=== PATIENT | female | born 1975 | race Caucasian/White ===

== ENCOUNTER 2018-03-14 22:48 | Inpatient (IN) | payer BC, OTHER ==
--- NOTE | 2018-03-14 23:41 | RAD ---
PORTABLE CHEST ONE VIEW 03/14/18 at 11:27 p.m. HISTORY: Shortness of breath. FINDINGS: The heart size is normal. The lungs are expanded without focal areas of consolidation, pneumothorax, or pleural effusions. IMPRESSION: No acute process. POS: [facility]
[2018-03-15 00:05] LABS: ALT (SGPT) 20 U/L (8-55); AST (SGOT) 22 U/L (5-34); Albumin 3.8 g/dL (3.5-5.0); Alkaline Phosphatase 58 U/L (40-150); Anion Gap 12 mmol/L (10-20); BUN (Urea Nitrogen) 16 mg/dL (7.0-18.7); Bilirubin, Total 0.3 mg/dL (0.2-1.2); Calc. Creatinine Clearance 0 mL/min (70-130); Calcium 8.7 mg/dL (7.8-10.44); Carbon Dioxide 22 mmol/L (22-29); Chloride 109 mmol/L (98-107); Estimated GFR-MDRD 89; Globulin 2.7 g/dL (2.4-3.5); Glucose 118 mg/dL (70-105); Potassium 3.5 mmol/L (3.5-5.1); Protein, Total 6.5 g/dL (6.0-8.3); Sodium 139 mmol/L (136-145)
[2018-03-15 00:08] LABS: Hemoglobin 4.7 g/dL (12.0-16.0)
[2018-03-15 00:10] LABS: CKMB 0.4 ng/mL (0-6.6); Troponin I Less than 0.010 ng/mL (< 0.028)
[2018-03-15 00:27] LABS: #Basophils 0.1 thou/uL (0.0-0.2); #Eosinphils 0.1 thou/uL (0.0-0.7); #Lymphocytes 1.9 thou/uL (1.20-3.40); %Basophils 0.9 % (0.0-1.0); %Eosinophils 1.7 % (0.0-10.0); %Lymphocytes 23.3 % (21.0-51.0); %Monocytes 12.1 % (0.0-10.0); Anisocytosis SLIGHT = 6-15 cells (100X) (0-5/hpf); Hypochromia SLIGHT = 6-15 cells (100X) (0-5/hpf); MDiff Complete? YES; Mean Corpuscular HGB CONC 32.3 g/dL (32.0-36.0); Mean Corpuscular Hemoglobin 24.2 pg (27.0-31.0); Mean Corpuscular Volume 74.7 fl (81.0-99.0); Mean Platelet Volume 8.3 fL (7.4-10.4); Microcytosis SLIGHT = 6-15 cells (100X) (0-5/hpf); Platelet Count 233 thou/uL (130-400); RBC Distribution Width 15.4 % (11.5-14.5); Red Blood Cell (RBC) Count 1.93 mill/uL (4.20-5.40); Reflex for Review?? YES; White Blood Cell (WBC) Count 8.1 thou/uL (4.8-10.8)
[2018-03-15 00:32] LABS: Free T4 (Free Thyroxine) 1.02 ng/dL (0.70-1.48); Thyroid Stimulating Hormone 1.5712 uIU/mL (0.35-4.94)
[2018-03-15 01:45] LABS: Iron 12 ug/dL (50-170); Iron Binding Capacity, Total 410 mcg/dL (265-497)
[2018-03-15 02:38] LABS: Bilirubin Negative (Negative); Blood, Urine Negative (Negative); Clarity CLEAR (Clear); Glucose, Urine (Dipstick) Negative (Negative); Leukocyte Negative (Negative); Nitrite Negative (Negative); Protein, Urine (Dipstick) Negative (Neg-Trace); Specific Gravity, Urine 1.011 (1.002-1.036); Urobilinogen 0.2 mg/dL (0.2-1.0)
[2018-03-15 02:45] LABS: Pregnancy Test - Urine (BHCG) Negative (Negative); Pregu Control Background? CLEAR/WHITE (CLR/WHITE); Pregu Control Bar Appear? YES (CONTROL BAR); Specific Gravity 1.011 (1.002-1.036)
[2018-03-15 02:49] LABS: Amphetamine Not Detected (NotDetected); Barbiturates Screen Not Detected (NotDetected); Benzodiazepine Screen Not Detected (NotDetected); Cocaine Metabolite Screen Not Detected (NotDetected); Medtox Control Line Valid? VALID (VALID); Medtox Reader # READER 1; Methadone Not Detected (NotDetected); Methamphetamine Not Detected (NotDetected); Opiate Screen Not Detected (NotDetected); Oxycodone Screen Not Detected (NotDetected); Phencyclidine (PCP) Not Detected (NotDetected); THC/Cannabinoid Screen Not Detected (NotDetected); Tricyclic Screen Not Detected (NotDetected)
[2018-03-15] MEDS ORDERED: Acetaminophen 325 MG TAB PO PRN (02:54)
[2018-03-15] MEDS ORDERED: Ondansetron ODT 4 MG TAB SL PRN (03:15)
[2018-03-15] MEDS ORDERED: Sodium Chloride 0.45% 1,000 ML IV SCH (03:15)
[2018-03-15] MEDS ORDERED: Ondansetron PF 4 MG/2 ML Vial IVP PRN (03:15)
[2018-03-15 03:35] VITALS: BMI 25.4
[2018-03-15] MEDS: Sodium Chloride 0.9% 1,000 ML IV SCH ×2 (04:44→22:46)
--- NOTE | 2018-03-15 05:26 | HP ---
CHIEF COMPLAINT: Shortness of breath and palpitation. PRIMARY CARE PHYSICIAN: No PCP. HISTORY OF PRESENT ILLNESS: The patient is a very pleasant, 43-year-old female, who presents to the hospital today with complaints of shortness of breath and palpitations going on for the past 2-3 days . The patient states that she has a history of fissures and has occasional bleeding after having a b owel movement with also some minor clots. The patient states that she recently had her menstrual cyc le, and normally, during her menstrual cycle, her hemorrhoids act up, and she has continued to have s ome minor bleeding with some minor clots for the past 2 weeks. The patient denies any fevers or chil ls. Patient states that she was trying to hold her baby up today, felt very nauseous, felt very ill. Patient stated that she at one point feels that she passed out because when she woke up she found h erself lying in her own urine. At that time, patient got very concerned and brought herself into the ER. The patient stated also that a couple of days ago she took some iron, which seemed to help her. PAST MEDICAL HISTORY: She has a history of hemorrhoids and fissure. SOCIAL HISTORY: Denies any smoking; however, drinks 1-2 beers a day. FAMILY HISTORY: Father had lung cancer. ALLERGIES: She is allergic to CODEINE and SHELLFISH. MEDICATIONS: She takes no medications. SURGICAL HISTORY: She had no surgical history, and she is 2, para 2. REVIEW OF SYSTEMS: The following complete review of systems was negative, unless otherwise mentioned in the HPI or below: Constitutional: Weight loss or gain, ability to conduct usual activities. Sk in: Rash, itching. Eyes: Double vision, pain. ENT/Mouth: Nose bleeding, neck stiffness, pain, te nderness. Cardiovascular: Palpitations, dyspnea on exertion, orthopnea. Respiratory: Shortness of breath, wheezing, cough, hemoptysis, fever or night sweats. Gastrointestinal: Poor appetite, abdom inal pain, heartburn, nausea, vomiting, constipation, or diarrhea. Genitourinary: Urgency, frequenc y, dysuria, nocturia. Musculoskeletal: Pain, swelling. Neurologic/Psychiatric: Anxiety, depressio n. Allergy/Immunologic: Skin rash, bleeding tendency. All negative except for the ones mentioned a kusum in the HPI. PHYSICAL EXAMINATION: VITAL SIGNS: Temperature 98.8. She is a little tachycardic at 110. Blood pressure is 110/60, respi rations are 16, she is 98% on room air. GENERAL: The patient is awake, alert, oriented x3, appears very pale, does not appear in any distres s. CARDIOVASCULAR: S1, S2 present. No murmurs, rubs, or gallops. LUNGS: Clear to auscultation. No rhonchi or wheezes noted. ABDOMEN: Soft, nontender. Bowel sounds are present x2. EXTREMITIES: Lower extremity, no edema. Pedal pulse present x2. SKIN: She does have several tattoos in her back and her leg and her neck area. LABORATORY RESULTS: As following. She has hemoglobin of 4.7 with a hematocrit of 14.4, WBCs of 8.1, platelets of 233. Chemistry, sodium of 139, potassium of 3.5, BUN of 16, creatinine of 0.71. Tropo christ x1 was negative. LFTs were negative. She also had a chest x-ray done, which did not indicate an y acute process. ASSESSMENT AND PLAN: The patient is a very pleasant, 43-year-old female, who presents to the [facility] with complaints of shortness of breath and palpitation. 1. Microcytic anemia, acute, which most likely is causing her shortness of breath and palpitations. The patient's hemoglobin is found to be 4.7. We will transfuse the patient 2 units of packed red bl ood cells. We will check hemoglobin and hematocrit post 2 units and transfuse as needed. Her iron s tudies were found to have low iron. The patient may require IV iron in addition to p.o. iron. The p atient states that she has been having her hemorrhoids that are bleeding; however, currently, she say s that her hemorrhoid bleeding has stopped. 2. Deep venous thrombosis prophylaxis. We will put the patient on sequential compression devices gi scooter her recent history of bleeding. We will avoid any anticoagulation.
[2018-03-15 08:17] LABS: Hemoglobin 6.1 g/dL (12.0-16.0)
--- NOTE | 2018-03-15 09:58 | ULT ---
TRANSABDOMINAL AND TRANSVAGINAL PELVIC ULTRASOUND WITH DOPPLER: DATE: 03/15/18. PROVIDED CLINICAL HISTORY: Uterine bleeding. FINDINGS: The uterus measures about 9.2 x 6.4 x 4.2 cm and demonstrates an unremarkable sonographic appearance to the uterine myometrium. Endometrial thickness is about 1 cm. The right ovary measures about 2.9 x 2.8 x 1.8 cm and appears sonographically unremarkable. The left ovary measures about 3.3 x 2.8 x 2.8 cm and appears sonographically unremarkable. Color Doppler and spectral analysis of the ovarian waveforms demonstrates normal flow bilaterally. There is a small amount of nonspecific free pelvic fluid. IMPRESSION: No evidence for an acute process. Nonspecific prominence of the uterine endometrium. A small amount of possibly physiologic free pelvic fluid. POS: [facility]
--- NOTE | 2018-03-15 11:50 | PDOC.PN ---
- Subjective Encounter Start Date: 03/15/18 Encounter Start Time: 08:30 Subjective: no abd pain or nausea -: got 1 unit or prbc so far -: no sob, no vaginal bleeding, has chronic h/o hemorrhoids/fissure - Objective Resuscitation Status: Resuscitation Status FULL:Full Resuscitation MAR Reviewed: Yes Vital Signs & Weight: Vital Signs (12 hours) Temp Pulse Pulse Resp BP BP Pulse Ox 03/15/18 11:32 98.0 F 86 18 123/60 100 03/15/18 09:47 98.2 F 92 16 130/64 100 03/15/18 09:37 98.1 F 91 16 118/66 100 03/15/18 07:44 98.3 F 86 15 99 03/15/18 07:04 98.3 F 84 15 112/66 98 03/15/18 07:00 80 18 112/66 100 03/15/18 04:06 98.4 F 97 16 129/55 L 99 03/15/18 03:45 98.4 F 96 16 98 03/15/18 02:55 99.8 F H 96 16 122/56 L 100 Weight Weight 167 lb 11.2 oz I&O: 03/14/18 03/15/18 03/16/18 06:59 06:59 06:59 Intake Total 500 350 Output Total 150 Balance 350 350 Result Diagrams: 03/15/18 06:37 03/14/18 23:30 Phys Exam - Physical Examination HEENT: PERRLA, moist MMs pallor+ Neck: no JVD, supple Respiratory: no wheezing, no rales Cardiovascular: RRR, no significant murmur Gastrointestinal: soft, non-tender, no distention, positive bowel sounds Musculoskeletal: no edema, pulses present Neurological: non-focal, moves all 4 limbs Psychiatric: normal affect, A&O x 3 Dx/Plan (1) severe iron def anemia Status: Acute Comment: with Hb of 4.7g (2) Acute blood loss anemia Code(s): D62 - ACUTE POSTHEMORRHAGIC ANEMIA Status: Acute (3) GI bleed Code(s): K92.2 - GASTROINTESTINAL HEMORRHAGE, UNSPECIFIED Status: Acute Qualifiers: GI bleed type/associated pathology: anorectal hemorrhage Qualified Code(s) : K62.5 - Hemorrhage of anus and rectum - Plan is getting her second unit of prbc -: may transfuse 3rd unit if Hb <7g -: d/w , keep pt npo -: had colonoscopy 1 yr back (), f/u with for fissure/hemor -: lasix prn if vol overloaded * . Pelvic usg showed no path for anemia. Has normal cycles with no elise/ metrorrhagia. Last child is 2 yrs old. Review of Systems - Medications/Allergies Allergies/Adverse Reactions: Allergies Allergy/AdvReac Type Severity Reaction Status Date / Time peanut Allergy Severe Verified 03/15/18 04:14 Fish Containing Products Allergy Intermediate Verified 03/15/18 04:14 shellfish derived Allergy Intermediate Verified 03/15/18 04:14 codeine AdvReac Mild Nausea Verified 03/15/18 04:14 Medications: Current Medications Acetaminophen (Tylenol) 650 mg PO Q4H PRN PRN Reason: Headache/Fever or Pain Sodium Chloride (Normal Saline 0.9%) 1,000 mls @ 50 mls/hr IV .Q20H [facility]IVEL Last Admin: 03/15/18 04:44 Dose: 1,000 mls Ondansetron HCl (Zofran) 4 mg IVP Q6H PRN PRN Reason: Nausea/Vomiting Stop: 03/15/18 15:00 Ondansetron HCl (Zofran Odt) 4 mg SL Q6H PRN PRN Reason: Nausea/Vomiting Stop: 03/15/18 15:00 Sodium Chloride (Flush - Normal Saline) 10 ml IVF PRN PRN PRN Reason: Saline Flush Stop: 03/15/18 15:00
[2018-03-15 12:08] LABS: Hemoglobin 7.2 g/dL (12.0-16.0); Mean Corpuscular HGB CONC 33.7 g/dL (32.0-36.0); Mean Corpuscular Hemoglobin 27.5 pg (27.0-31.0); Mean Corpuscular Volume 81.5 fl (81.0-99.0); Mean Platelet Volume 7.8 fL (7.4-10.4); Platelet Count 190 thou/uL (130-400); RBC Distribution Width 17.9 % (11.5-14.5); Red Blood Cell (RBC) Count 2.63 mill/uL (4.20-5.40); White Blood Cell (WBC) Count 8.3 thou/uL (4.8-10.8)
[2018-03-15 12:43] LABS: Anisocytosis SLIGHT = 6-15 cells (100X) (0-5/hpf); Band 4 % (5-11); Eosinophils 3 % (0-10); Hypochromia MODERATE=16-30 cells (100X) (0-5/hpf); Lymphocytes 24 % (21-51); MDiff Complete? YES; Metamyelocyte 6 % (0-0); Monocytes 4 % (0-10); Neutrophil 58 % (42-75); PLT Morphology Comment Appears Adequate; Poikilocytosis SLIGHT = 6-15 cells (100X) (0-5/hpf); Reactive Lymphocytes 1 % (0-10)
[2018-03-15 14:01] LABS: Hemoglobin 7.7 g/dL (12.0-16.0)
[2018-03-15 20:39] LABS: Hemoglobin 7.1 g/dL (12.0-16.0)
--- NOTE | 2018-03-15 21:38 | CON ---
DATE OF CONSULTATION: 03/15/2018 REASON FOR CONSULTATION: Symptomatic anemia. CONSULTING PHYSICIAN: Thi Flaherty MD HISTORY OF PRESENT ILLNESS: Patient is a 43-year-old female with past medical history of hemorrhoids with chronic hemorrhoidal bleeding, anxiety, asthma and anal fissure, presenting with complaints of shortness of breath and palpitations. She says that for the past 2 to 3 days prior to admission, she had been having increased shortness of breath both on exertion and at rest along with sensation of p alpitations. She did not notice that this was a significant issue until she was walking with her bab y in her arms and could only walk approximately 10 to 12 steps while carrying them and had realized t hat she had to stop to catch her breath. This subsequently brought her in for admission and with rou ladarius labs noted to have a significantly decreased H and H and admitted for evaluation. Upon further interview, she states that she has been having chronic hemorrhoidal bleeding for at least the last 1 to 2 years, characterized as bright red blood per rectum on both the toilet paper and in the toilet. She would bleed for approximately 2 to 3 weeks at a time with sometimes minimal, but other times inc reased amounts of blood loss. She also states that she would have approximately 3 to 5 semisolid bow el movements per day with a history of constipation, but none within the last year. She also endorse s a history of childhood constipation where she would spend increased amounts of time on the toilet, which is continued into adulthood with her current stooling habits, she does have some intermittent s training from time to time. In addition to the above symptoms, she also endorsed minimal midepigastr ic abdominal discomfort characterized as the sensation of a knot in her stomach that was relieved wit h burping. She does have symptoms of occasional heartburn that are being adequately treated with ove [id number]-[id number] acid reflux medications. Of note, when asked about her menstrual cycle, she does note that she has a normal duration length, b ut will often have times where she has a heavier menstrual flow. Colonoscopy also was performed on 0 03/25/2017 with normal colonic findings at that time except for external hemorrhoids. REVIEW OF SYSTEMS: A 10-category review of systems was obtained with all responses negative except f or the pertinent positives as listed in the HPI. PAST MEDICAL HISTORY: As per HPI. PAST SURGICAL HISTORY: No significant past surgical history. FAMILY HISTORY: Lung cancer (father). No GI malignancies. SOCIAL HISTORY: Denies tobacco or illicit drug use; however, drinks approximately 1-2 drinks every 1 -2 days. OUTPATIENT MEDICATIONS: None. ALLERGIES: CODEINE and SHELLFISH. PHYSICAL EXAMINATION: VITAL SIGNS: Temperature 98.2, pulse 81, blood pressure 123/74, respiratory rate 20, satting 100% on room air. GENERAL: The patient is lying in bed in no acute distress. Alert and oriented x4. NECK: Supple. No JVD noted. CARDIOVASCULAR: Regular rate and rhythm with no discernible murmurs, gallops, or rubs. RESPIRATORY: Clear to auscultation bilaterally with no wheezes or rales. ABDOMEN: Soft, nontender, nondistended. Normoactive bowel sounds. EXTREMITIES: No cyanosis, clubbing, or edema. LABORATORY DATA: CBC with a white blood cell count of 8.1, hemoglobin 4.7, hematocrit 14.4, platelet s 233,000. Chemistry with sodium of 139, potassium 3.5, chloride 109, CO2 of 22, BUN 16, creatinine 0.71, glucose 118, AST 22, ALT 20, alkaline phosphatase 58, total bilirubin 0.3. Iron 12, TIBC 396, ferritin 11, iron saturation 3%. IMAGING DATA: Pelvis ultrasound obtained on 03/15/2018, showed no evidence of acute process, nonspec ific prominence of the uterine endometrium, but no other abnormalities. ASSESSMENT AND PLAN: The patient is a 43-year-old female with past medical history of anxiety, asthm a, anal fissure, and chronic hemorrhoidal bleeding presenting with iron deficiency anemia. Iron deficiency anemia: The patient is presenting with acute onset of increased dyspnea on exertion as well as shortness of breath at rest, mild nausea, and cardiac palpitations with labs showing a sig nificant anemia. Further characterization of her anemia yields a low iron, high TIBC, and low ferrit in consistent with an iron deficiency anemia. She underwent colonoscopy in 03/2017, however, with no overt findings seen during that examination except for external hemorrhoids. She has never had an u pper endoscopy. At this time, the most likely explanation for her iron deficiency anemia would be ch ronic hemorrhoidal bleeding over the last year where she would have episodes of bleeding for 2 to 3 w eeks straight with intermittent relief in between these episodes in addition to monthly menstrual ble eding that would sometimes be characterized as heavier flow. When coupling the two together, it coul d definitely create an iron deficiency anemia with a significant anemia that is seen on admission thi s time. However, at this point, an upper gastrointestinal source of her anemia has not been ruled ou t, so further endoscopic evaluation is indicated. RECOMMENDATIONS: 1. We would continue to trend H and H and transfuse as necessary to maintain H and H of 06/06. 2. We will continue to monitor for signs of active GI bleeding. 3. Please make patient n.p.o. at midnight in preparation for an EGD tomorrow morning for completing the GI workup for iron deficiency anemia. 4. If no evidence of chronic GI blood loss is seen on upper endoscopy, would then recommend colorect al surgery consultation for evaluation of chronic bleeding hemorrhoids contributing to her symptomati c anemia. We will continue to follow. Please call with any questions.
[2018-03-16 02:53] LABS: ALT (SGPT) 21 U/L (8-55); AST (SGOT) 16 U/L (5-34); Albumin 3.4 g/dL (3.5-5.0); Alkaline Phosphatase 50 U/L (40-150); Anion Gap 11 mmol/L (10-20); BUN (Urea Nitrogen) 11 mg/dL (7.0-18.7); Bilirubin, Total 0.6 mg/dL (0.2-1.2); Calc. Creatinine Clearance 140 mL/min (70-130); Calcium 7.9 mg/dL (7.8-10.44); Carbon Dioxide 21 mmol/L (22-29); Chloride 111 mmol/L (98-107); Estimated GFR-MDRD Greater than 90; Globulin 2.2 g/dL (2.4-3.5); Glucose 88 mg/dL (70-105); Potassium 3.5 mmol/L (3.5-5.1); Protein, Total 5.6 g/dL (6.0-8.3); Sodium 139 mmol/L (136-145)
[2018-03-16] MEDS ORDERED: Ondansetron HCl/PF 4 MG/2 ML Vial IVP PRN (11:47)
[2018-03-16] MEDS ORDERED: PACU-Morphine 4MG/ML VIAL SLOW IVP PRN (11:47)
[2018-03-16] MEDS ORDERED: Morphine Sulfate 2 MG/ML SYRINGE SLOW IVP PRN (11:47)
[2018-03-16] MEDS ORDERED: Promethazine HCl 25 MG/ML VIAL SLOW IVP PRN (11:47)
--- NOTE | 2018-03-16 12:36 | OP ---
DATE OF PROCEDURE: 03/16/2018 PROCEDURE: Esophagogastroduodenoscopy with biopsy. INDICATION FOR PROCEDURE: Iron deficiency anemia. DESCRIPTION OF PROCEDURE: After the risks and benefits of the procedure were explained to the patien t including risk of bleeding, infection, perforation, reactions to anesthesia and/or pain, informed c onsent was obtained. The patient was then taken to the endoscopy suite where deep sedation was admin istered via propofol and anesthesia support. Once adequate sedation was achieved, the standard gastr oscope was introduced into the mouth with intubation of the esophagus, stomach and proximal small int estine with the findings listed below. The patient tolerated the procedure well with no immediate pe rioperative complications. FINDINGS: ESOPHAGUS: Normal appearing mucosa was seen in the proximal, mid and distal esophagus. There was no evidence of erosions, ulcerations, mass lesions or active/recent bleeding. STOMACH: Normal appearing mucosa was seen in the cardia, fundus, body, antrum and incisura. There w as no evidence of erosions, ulcerations, mass lesions or active/recent bleeding. DUODENUM: Normal appearing mucosa was seen in both the duodenal bulb and second portion of the duode num. There was no evidence of erosions, ulcerations, mass lesions or active/recent bleeding. Random biopsies were taken from the duodenal bulb and second portion of the duodenum for evaluation of poss ible celiac sprue. IMPRESSION: Normal upper endoscopy. RECOMMENDATIONS: 1. We will follow up on the biopsy results and place the patient on a gluten restricted diet if posi tive for celiac disease. 2. We will continue to trend hemoglobin and hematocrit and transfuse as necessary to maintain an hem oglobin and hematocrit of 7/21. 3. Continue to monitor for signs of active gastrointestinal bleeding. 4. Would consider consultation of colorectal surgeon for evaluation of chronic hemorrhoidal bleeding , most likely leading to her current iron deficiency anemia state and low hemoglobin and hematocrit o n this admission. We will sign off at this time. Please call with any additional questions.
--- NOTE | 2018-03-16 13:23 | PDOC.PN ---
- Subjective Encounter Start Date: 03/16/18 Encounter Start Time: 12:45 Subjective: had egd this am - Objective Resuscitation Status: Resuscitation Status FULL:Full Resuscitation MAR Reviewed: Yes Vital Signs & Weight: Vital Signs (12 hours) Temp Pulse Resp BP BP Pulse Ox 03/16/18 08:00 98.7 F 90 16 97 03/16/18 07:00 98.7 F 90 16 97/49 L 97 03/16/18 04:38 81 16 109/59 L 95 Weight Weight 163 lb 6.4 oz I&O: 03/15/18 03/16/18 03/17/18 06:59 06:59 06:59 Intake Total 500 650 Output Total 150 Balance 350 650 Result Diagrams: 03/16/18 01:37 03/16/18 01:37 Phys Exam - Physical Examination HEENT: PERRLA, moist MMs Neck: no JVD, supple Respiratory: no wheezing, no rales Cardiovascular: RRR, no significant murmur Gastrointestinal: soft, non-tender, no distention, positive bowel sounds Musculoskeletal: no edema, pulses present Neurological: non-focal, moves all 4 limbs Psychiatric: normal affect, A&O x 3 Dx/Plan (1) severe iron def anemia Status: Acute Comment: with Hb of 4.7g (2) Acute blood loss anemia Code(s): D62 - ACUTE POSTHEMORRHAGIC ANEMIA Status: Acute (3) GI bleed Code(s): K92.2 - GASTROINTESTINAL HEMORRHAGE, UNSPECIFIED Status: Acute Qualifiers: GI bleed type/associated pathology: anorectal hemorrhage Qualified Code(s) : K62.5 - Hemorrhage of anus and rectum - Plan will consult -: EGD was normal, pelvic sono was normal -: likely etiology for bleed is her chronic hemorrhoids/fissure -: oral solid diet, dc iv fluids -: Likely home on iron if no surgical intervention is planned * . Review of Systems - Medications/Allergies Allergies/Adverse Reactions: Allergies Allergy/AdvReac Type Severity Reaction Status Date / Time peanut Allergy Severe Verified 03/15/18 04:14 Fish Containing Products Allergy Intermediate Verified 03/15/18 04:14 shellfish derived Allergy Intermediate Verified 03/15/18 04:14 codeine AdvReac Mild Nausea Verified 03/15/18 04:14 Medications: Current Medications Acetaminophen (Tylenol) 650 mg PO Q4H PRN PRN Reason: Headache/Fever or Pain Fentanyl (Pacu-Sublimaze) 50 mcg SLOW IVP Q10MIN PRN PRN Reason: Moderate to Severe Pain (6-10) Stop: 03/16/18 14:47 Sodium Chloride (Normal Saline 0.9%) 1,000 mls @ 50 mls/hr IV .Q20H [facility] Last Admin: 03/15/18 22:46 Dose: 1,000 mls Morphine Sulfate (Pacu-Morphine Sulfate) 2 mg SLOW IVP Q10MIN PRN PRN Reason: Moderate to Severe Pain (6-10) Stop: 03/16/18 14:47 Morphine Sulfate (Pacu-Morphine Sulfate) 4 mg SLOW IVP ONE PRN PRN Reason: Moderate to Severe Pain (6-10) Stop: 03/16/18 14:47 Ondansetron HCl (Pacu-Zofran) 4 mg IVP ONE PRN PRN Reason: Nausea/Vomiting Stop: 03/16/18 14:47 Promethazine HCl (Pacu-Phenergan) 6.25 mg SLOW IVP ONE PRN PRN Reason: Nausea/Vomiting Stop: 03/16/18 14:47
[2018-03-16] MEDS ORDERED: PROPOFOL 200 MG/20 ML VIAL ONE (15:09)
[2018-03-16] MEDS: Sodium Chloride 0.9% 1,000 ML IV SCH (15:24)
[2018-03-16] MEDS ORDERED: cefOXitin Sodium 1 GM, Syringe 0.5 ML in Sterile Water 10 ML SLOW IVP SCH (19:30)
[2018-03-16] MEDS ORDERED: Fleet Enema 133 ML BOT FS SCH (19:30)
--- NOTE | 2018-03-17 00:42 | CON ---
DATE OF CONSULTATION: 03/16/2018 REASON FOR CONSULTATION: Severe symptomatic anemia (hemoglobin of 4.7), bleeding internal hemorrhoid s. HISTORY OF PRESENT ILLNESS: The patient is a 43-year-old white female known to myself from prior con sultation in my office. I have visited with her on few occasions in my office regarding bleeding int ernal hemorrhoids and an anal fissure. The last time that I saw her was in 09/2017 and at that time she seemed to have some minor bleeding, but more significant pain associated with an anterior anal fi ssure. She was still her child at that time, and I had recommended an alternative cour se of action rather than topical nitroglycerin. She actually never followed up for any Botox treatme nt, but noted that the pain seemed to get better and she has seen no one in the interim. She notes t hat she continues to have blood in the toilet with each bowel movement. A couple of weeks ago she be joselin to note increased tiredness and lethargy, decreased stamina. She felt very weak on Friday (2 d ays ago) presented to the emergency room. Laboratory studies at that time revealed hemoglobin of 4.7 . I believe she was transfused with 2 units of blood and her hemoglobin oscar to a high of 7.7 and is currently 7.0. She had a GI evaluation and Dr. Cuadra performed an upper endoscopy yesterday, which was unremarkable. The patient had had a colonoscopy in 03/2017 revealing no other intracolonic abnor malities other than hemorrhoids. At this time, she notes that she has minimal anal discomfort, but still has bleeding. She notes occa sional constipation, but otherwise no significant problems with bowel habits. Her most recent bowel movement was earlier today and was unremarkable. PAST MEDICAL HISTORY: Essentially unremarkable. She has significant external hemorrhoids. PAST SURGICAL HISTORY: None. MEDICATIONS: None. ALLERGIES: CODEINE causes vomiting, but she has no definite medication allergies. PERSONAL AND SOCIAL HISTORY: She is essentially common law . She has 2 children, one of whom is about 2 years old. She does not smoke. She drinks alcohol occasionally. She works at a [employer]. REVIEW OF SYSTEMS: Otherwise, unremarkable. FAMILY HISTORY: Noncontributory. PHYSICAL EXAMINATION: VITAL SIGNS: Temperature is 98.0, pulse 84, blood pressure 124/69. GENERAL: Well-developed, well-nourished, pleasant white female resting in bed in no acute distress. She is alert and oriented x3. HEAD, EYES, EARS, NOSE, AND THROAT: Unremarkable. NECK: Supple, without mass or tenderness. LUNGS: Clear to auscultation throughout. CARDIAC: Regular rate and rhythm without murmur. ABDOMEN: Soft, nontender, nondistended. RECTAL: She has significant circumferential external hemorrhoids that are not inflamed or tender. S he also has semi circumferential internal hemorrhoids. This prolapsed somewhat with Valsalva maneuve r. Some of these appear to be significantly inflamed as though they may be the source of bleeding. Digital examination reveals some scarring anteriorly consistent with a history of a fissure. She has got minor tenderness associated with this. There is no other definite rectal mass. LABORATORY DATA: Her coagulation panel has surprisingly not been checked during this hospitalization . I will order a set of these labs for her in the morning. Her chemistry panel is essentially unrem arkable. ASSESSMENT: The patient with what appears to be significant anemia related to bleeding hemorrhoids. She understands it is possible the bleeding may be coming from elsewhere within the GI tract, such a s the small intestine. Does not seem likely; however, at this point that she describes the bleeding as bright red. I recommend stapled hemorrhoidectomy. She tells me that external hemorrhoids do not bother her enough that she would like to have them operated on. She understands the procedure was st apled hemorrhoidectomy as well as potential risks. She understands and agrees to proceed with surger y and this has been scheduled for tomorrow. Assuming she is stable, she can probably go home after t he surgery tomorrow.
[2018-03-17 05:19] LABS: INR-International Normal Ratio 1.2; PTT 35.1 SEC (22.9-36.1); Prothrombin Time 15.3 SEC (12.0-14.7)
[2018-03-17 05:35] LABS: #Basophils 0.1 thou/uL (0.0-0.2); #Eosinphils 0.2 thou/uL (0.0-0.7); #Lymphocytes 2.1 thou/uL (1.20-3.40); #Monocytes 0.8 thou/uL (0.11-0.59); #Neutrophils 3.3 thou/uL (1.40-6.50); %Basophils 0.8 % (0.0-1.0); %Lymphocytes 32.2 % (21.0-51.0); %Monocytes 11.8 % (0.0-10.0); %Neutrophils 52.2 % (42.0-75.0); Hemoglobin 7.1 g/dL (12.0-16.0); Mean Corpuscular HGB CONC 34.6 g/dL (32.0-36.0); Mean Corpuscular Hemoglobin 28.2 pg (27.0-31.0); Mean Corpuscular Volume 81.6 fl (81.0-99.0); Mean Platelet Volume 8.7 fL (7.4-10.4); Platelet Count 185 thou/uL (130-400); RBC Distribution Width 17.9 % (11.5-14.5); White Blood Cell (WBC) Count 6.4 thou/uL (4.8-10.8)
[2018-03-17] MEDS: Ferrous Sulfate 325 MG TAB PO SCH (08:29)
[2018-03-17] MEDS ORDERED: Lidocaine 2% Jelly 5 ML TUBE ONE (15:31)
[2018-03-17] MEDS ORDERED: Bupivacaine/Epinephrine 0.25% 30 ML VIAL ONE (15:31)
[2018-03-17] MEDS ORDERED: Lidocaine 1% PF 5 ML VIAL ONE (16:11)
[2018-03-17] MEDS ORDERED: Ondansetron PF 4 MG/2 ML Vial ONE ×2 (16:11→17:05)
[2018-03-17] MEDS ORDERED: Dexamethasone 20 MG/5 ML VIAL ONE (16:11)
[2018-03-17] MEDS ORDERED: PROPOFOL 200 MG/20 ML VIAL ONE (16:11)
[2018-03-17] MEDS ORDERED: Glycopyrrolate 0.2 MG/ML 5 ML SYRINGE ONE (16:11)
[2018-03-17] MEDS ORDERED: Fentanyl 100 MCG/2 ML VIAL ONE ×2 (16:12→17:42)
[2018-03-17] MEDS ORDERED: Ondansetron HCl/PF 4 MG/2 ML Vial IVP PRN (17:09)
[2018-03-17] MEDS ORDERED: Promethazine HCl 25 MG/ML VIAL SLOW IVP PRN (17:09)
[2018-03-17] MEDS ORDERED: Promethazine HCl 25 MG/ML VIAL IM PRN (17:09)
[2018-03-17] MEDS ORDERED: HYDROcodone/Acetaminophen 7.5/325 mg Tablet PO PRN (18:23)
[2018-03-17] MEDS: Sodium Chloride 0.9% 1,000 ML IV SCH (18:56)
[2018-03-17] MEDS: HYDROcodone/Acetaminophen 7.5/325 mg Tablet PO PRN (19:00)
--- NOTE | 2018-03-17 19:07 | PDOC.PN ---
- Subjective Encounter Start Date: 03/17/18 Encounter Start Time: 19:05 Ms. Bautista has returned from surgery. She is feeling a bit nauseated, and has some pain in the rectal area of about 5/10. - Objective Resuscitation Status: Resuscitation Status FULL:Full Resuscitation MAR Reviewed: Yes Vital Signs & Weight: Vital Signs (12 hours) Temp Pulse Resp BP BP Pulse Ox 03/17/18 18:15 98.4 F 72 18 114/60 100 03/17/18 11:24 98.4 F 81 16 113/69 100 03/17/18 08:11 98.7 F 86 16 105/65 100 03/17/18 08:00 98.7 F 86 16 100 Weight Weight 163 lb 6.4 oz I&O: 03/16/18 03/17/18 03/18/18 06:59 06:59 06:59 Intake Total 650 1230 850 Output Total 0 Balance 650 1230 850 Result Diagrams: 03/17/18 04:38 03/16/18 01:37 Phys Exam - Physical Examination HEENT: PERRLA, sclera anicteric Respiratory: no wheezing, no rales, no rhonchi, clear to auscultation bilateral Cardiovascular: RRR, no significant murmur, no rub Gastrointestinal: soft, non-tender, no distention, positive bowel sounds Musculoskeletal: no edema Dx/Plan (1) Bleeding internal hemorrhoids Code(s): K64.8 - OTHER HEMORRHOIDS Status: Acute (2) Acute blood loss anemia Code(s): D62 - ACUTE POSTHEMORRHAGIC ANEMIA Status: Acute (3) severe iron def anemia Status: Acute Comment: with Hb of 4.7g - Plan * Severe Iron deficiency anemia- this has improved following transfusion, H&H is stable * She will need iron supplementation * Internal Hemorrhoids - she is s/p staple surgery- continue symptom management , and hopefully home tomorrow.
[2018-03-18] MEDS: HYDROcodone/Acetaminophen 7.5/325 mg Tablet PO PRN ×2 (00:14→07:01)
[2018-03-18 06:00] LABS: #Lymphocytes 1.2 thou/uL (1.20-3.40); #Monocytes 0.6 thou/uL (0.11-0.59); #Neutrophils 5.9 thou/uL (1.40-6.50); %Basophils 0.3 % (0.0-1.0); %Eosinophils 0.6 % (0.0-10.0); %Lymphocytes 15.7 % (21.0-51.0); %Monocytes 7.8 % (0.0-10.0); %Neutrophils 75.7 % (42.0-75.0); Hemoglobin 6.6 g/dL (12.0-16.0); Mean Corpuscular HGB CONC 32.5 g/dL (32.0-36.0); Mean Corpuscular Hemoglobin 26.5 pg (27.0-31.0); Mean Corpuscular Volume 81.4 fl (81.0-99.0); Mean Platelet Volume 8.6 fL (7.4-10.4); Platelet Count 187 thou/uL (130-400); RBC Distribution Width 17.2 % (11.5-14.5); White Blood Cell (WBC) Count 7.8 thou/uL (4.8-10.8)
[2018-03-18] MEDS: Ferrous Sulfate 325 MG TAB PO SCH (09:59)
[2018-03-18] MEDS: Sodium Chloride 0.9% 1,000 ML IV SCH (13:12)
--- NOTE | 2018-03-18 14:35 | PDOC.PN ---
- Subjective Encounter Start Date: 03/18/18 Encounter Start Time: 14:33 Ms. Bautista was seen today in follow-up of bleeding internal hemorrhoids. She is feeling better today, the pain has improved some, as well as the nausea. - Objective Resuscitation Status: Resuscitation Status FULL:Full Resuscitation MAR Reviewed: Yes Vital Signs & Weight: Vital Signs (12 hours) Temp Pulse Pulse Resp BP BP BP 03/18/18 13:50 98.2 F 72 18 128/77 03/18/18 11:46 98.6 F 72 16 130/82 03/18/18 08:00 99 F 82 16 03/18/18 07:47 99 F 82 16 110/68 03/18/18 04:00 99.7 F H 87 16 113/67 Pulse Ox 03/18/18 13:50 03/18/18 11:46 98 03/18/18 08:00 03/18/18 07:47 97 03/18/18 04:00 100 Weight Weight 163 lb 6.4 oz I&O: 03/17/18 03/18/18 03/19/18 06:59 06:59 06:59 Intake Total 1230 1790 240 Output Total 0 Balance 1230 1790 240 Result Diagrams: 03/18/18 05:19 03/16/18 01:37 Phys Exam - Physical Examination HEENT: PERRLA Respiratory: no wheezing, no rales, no rhonchi, clear to auscultation bilateral Cardiovascular: RRR, no significant murmur, no rub Gastrointestinal: soft, non-tender, no distention, positive bowel sounds Musculoskeletal: no edema Dx/Plan (1) Bleeding internal hemorrhoids Code(s): K64.8 - OTHER HEMORRHOIDS Status: Acute (2) Acute blood loss anemia Code(s): D62 - ACUTE POSTHEMORRHAGIC ANEMIA Status: Acute (3) severe iron def anemia Status: Acute Comment: with Hb of 4.7g - Plan * Bleeding Internal Hemorrhoids- she is one day post-op, and improving * Acute blood loss anemia from above- she tells me she had some significant bleedin yesterday prior to surgery- I suspect this is why her HGB is a bit lower today, agree with transfusion, and she can be discharge home afterwards.
--- NOTE | 2018-03-18 14:58 | DIS ---
DATE OF ADMISSION: 03/15/2018 DATE OF DISCHARGE: 03/18/2018 She does not have a primary care physician. DISCHARGE DIAGNOSES: 1. Acute blood loss anemia due to bleeding internal hemorrhoids. 2. History of menorrhagia. DISCHARGE MEDICATIONS: Include iron sulfate 325 mg daily. PROCEDURES DONE DURING ADMISSION: She had a pelvic ultrasound showing no evidence of any acute proce ss. There was some prominence of the uterine endometrium and a small amount of physiologic free pelv ic fluid, and the patient also had a stapling procedure, a staple hemorrhoidectomy. She also had an upper endoscopy, which was negative. HOSPITAL COURSE: Ms. Bautista is a 43-year-old female, who presented to the emergency room with compla ints of severe weakness and she actually even had a syncopal episode at home. She was initially foun d to have a hemoglobin of 4.7. She was admitted and given initially 2 units of packed RBCs; with yunier t, her hemoglobin oscar to 7.2. With a high of 7.7 during her admission. She was initially evaluated by Gastroenterology and had an upper endoscopy, which was negative. She reports having a colonoscop y approximately a year ago, which was negative, and so, therefore, this was not repeated. Pelvic ult rasound results as mentioned above. Since the source of the bleeding was not apparent from the upper endoscopy it is felt that it was likely from some internal hemorrhoids, which she had had documented prior. General Surgery was consulted and she had a staple hemorrhoidectomy and she is being dischar ged home and she will need to establish a primary care physician in the outpatient setting and follow up in 1-2 weeks.
[2018-03-18 17:05] VITALS: BP 107/65; TEMP 98.5
--- NOTE | 2018-03-19 02:18 | OP ---
DATE OF PROCEDURE: 03/17/2018 PREOPERATIVE DIAGNOSIS: Bleeding internal hemorrhoids. POSTOPERATIVE DIAGNOSIS: Bleeding internal hemorrhoids, anal fissure. OPERATION PERFORMED: PPH stapled hemorrhoidectomy, fissurectomy. SURGEON: Dr. Edenilson Mejía. ANESTHESIA: General endotracheal. INDICATIONS: The patient is a 43-year-old white female. She was admitted to the hospital a few days previously for severe anemia with a hemoglobin of 4. She has been transfused. She underwent upper endoscopy that was unremarkable. Her colonoscopy less than a year ago was also unremarkable except f or hemorrhoids. It is presumed that the source of her anemia is blood loss secondary to her hemorrho ids. She is therefore taken to the operating room at this time for PPH stapled hemorrhoidectomy. Sh e was recognized earlier to have an anterior fissure, but this was felt to be an unlikely source of h er blood loss. DESCRIPTION OF OPERATION: Informed consent was obtained, the patient was taken to the operating room , where general endotracheal anesthesia obtained with the patient in supine position. She was then r olled over into a prone jackknife position. Perianal area was prepped with Betadine and draped in st erile fashion. Local anesthetic was infiltrated using 0.25% Marcaine with epinephrine. The anus was gently dilated. I first perform visual inspection to confirm the presence of the anterior fissure, which was obvious. I then proceeded with the PPH procedure. The anus was dilated with the anal dilator and I subsequently placed the anal retractor, which was se cured in place with 4 interrupted sutures of 2-0 Vicryl. The partial obturator was used to place a p ursestring suture of 2-0 Prolene several centimeters proximal to the dentate line. The stapler was t hen obtained and maximally opened and the anvil was passed above the pursestring suture line. The pu rsestring suture was then secured around the post of the stapler. The tails of the suture were pulle d through the openings on the stapler and with retraction on the suture, the stapler was closed, ensu ring that the stapler was at least 4 cm internally. The stapler was then removed and the resected sp ecimen was inspected and found to be of appropriate width and thickness. Attention was turned to the staple line. There were a couple of minor areas of oozing and these were quickly controlled with sutures of 3-0 Vicryl. The anal retractor was then removed and attention wa s turned to the fissure. With inspection of this, there was in fact bleeding from the fissure. This may have been related dilatation. I decided not to proceed with a sphincterotomy, hoping that the a nal dilatation would help to resolution of the fissure. The fissure was excised and the edges were f reshened and it was closed with 3 interrupted sutures of 3-0 chromic. Gelfoam with lidocaine jelly w as placed within the anal canal. Dry gauze dressing was placed externally. There were no complicati ons. The patient tolerated the procedure well and was taken to Recovery Room in stable condition.
--- NOTE | 2018-04-13 14:42 | EKG ---
Test Reason : Blood Pressure : / mmHG Vent. Rate : 095 BPM Atrial Rate : 095 BPM P-R Int : 158 ms QRS Dur : 076 ms QT Int : 348 ms P-R-T Axes : 065 060 016 degrees QTc Int : 437 ms Normal sinus rhythm Nonspecific ST abnormality Abnormal ECG Reconfirmed by CLAIRE TORRES ([id number]), acquisition editor SYED TAVAREZ ([id number]) on 04/13/2018 2:42:11 PM Referred By: Confirmed By:CLAIRE TORRES
== END 2018-03-18 18:09 | disposition home or self-care (01) | DRG 348 ==
LOC: ERS 22:48 → IMCU/EMU 03-15 01:45 → T4-B 03-16 15:00
PROVIDERS: ADMIT Internal Medicine; ATTEND Internal Medicine
PROC: 30233N1 Transfusion of Nonautologous Red Blood Cells into Peripheral Vein, Percutaneous Approach (ICD-10-PCS; principal; 2018-03-15)
PROC: 0DB98ZX Excision of Duodenum, Via Natural or Artificial Opening Endoscopic, Diagnostic (ICD-10-PCS; 2018-03-16)
PROC: 06BY3ZC Excision of Hemorrhoidal Plexus, Percutaneous Approach (ICD-10-PCS; 2018-03-17)
PROC: 0DBQXZZ Excision of Anus, External Approach (ICD-10-PCS; 2018-03-17)
DX: K64.8 Other hemorrhoids (principal); D62 Acute posthemorrhagic anemia; K60.2 Anal fissure, unspecified; R00.2 Palpitations; F41.9 Anxiety disorder, unspecified; J45.909 Unspecified asthma, uncomplicated; Z88.5 Allergy status to narcotic agent
CPT/HCPCS: 36415; 36430; 71045; 76856; 80053; 80306; 81003; 81025; 82553; 82728; 83010; 83540; 83550; 83615; 83880; 84439; 84443; 84484; 85007; 85014; 85018; 85025; 85027; 85060; 85379; 85610; 85730; 86850; 86900; 86901; 88305; 93005; 93976; 96360; A4216; J0694; J1100; J2001; J2405; J2704; J3010; P9016

== ENCOUNTER 2018-04-09 08:13 | Outpatient (CLI) | payer OTHER | END 2018-04-09 08:14 | disposition home or self-care (01) | LOC: BICMAMMO 08:13 | PROVIDERS: ATTEND Family Medicine | DX: Z12.31 Encounter for screening mammogram for malignant neoplasm of breast (principal); Z80.3 Family history of malignant neoplasm of breast | CPT/HCPCS: 77063; 77067 ==

== ENCOUNTER 2019-03-31 08:56 | Outpatient (CLI) | payer OTHER ==
--- NOTE | 2019-03-31 09:35 | ULT ---
Exam: Ultrasound thyroid gland History thyroid nodule COMPARISON: None TECHNIQUE: Sagittal and transverse imaging and thyroid glands performed FINDINGS: Thyroid isthmus measures 1.2 cm Right thyroid lobe measures 6.3 x 2.0 x 2.2 cm Left thyroid lobe measures 5.5 x 1.7 x 1.2 cm Complex mixed solid and cystic nodule in the right thyroid lobe measuring 2.0 x 1.2 x 1.8 cm. Complex mixed solid and cystic nodule in the junction of the isthmus and left thyroid lobe measuring 1.2 x 2.8 x 2.2 cm. There are 2 solid nodules in the upper pole the right thyroid lobe measuring 0.8 and 1.1 cm in maximu m dimension. There is a complex nodule in the left upper lobe measuring 0.7 cm. IMPRESSION: 1. Multinodular thyroid gland. 2. Thyroid is score TR 2 for both complex nodules.
== END 2019-03-31 08:57 | disposition home or self-care (01) ==
LOC: BICULT 08:56
PROVIDERS: ATTEND Family Medicine
DX: E04.2 Nontoxic multinodular goiter (principal)
CPT/HCPCS: 76536

== ENCOUNTER 2019-04-14 08:27 | Outpatient (CLI) | payer OTHER ==
--- NOTE | 2019-04-14 08:57 | MMO ---
Bilateral MAMMO Bilat Screen [facility]. CLINICAL HISTORY: Patient is 44 years old and is seen for screening. The patient has no family history of breast cancer. The patient has no personal history of cancer. VIEWS: The views performed were: bilateral craniocaudal with tomosynthesis and bilateral mediolateral oblique with tomosynthesis. FILMS COMPARED: The present examination has been compared to a prior imaging study performed at [facility], [place] on 04/09/2018. MAMMOGRAM FINDINGS: There are scattered fibroglandular densities. There are no suspicious masses, suspicious calcifications, or new areas of architectural distortion. IMPRESSION: THERE IS NO MAMMOGRAPHIC EVIDENCE OF MALIGNANCY. A ROUTINE FOLLOW-UP MAMMOGRAM IN 1 YEAR IS RECOMMENDED. THE RESULTS OF THIS EXAM WERE SENT TO THE PATIENT. ACR BI-RADS Category 1 - Negative MAMMOGRAPHY NOTE: 1. A negative mammogram report should not delay a biopsy if a dominant of clinically suspicious mass is present. 2. Approximately 10% to 15% of breast cancers are not detected by mammography. 3. Adenosis and dense breasts may obscure an underlying neoplasm.
== END 2019-04-14 08:28 | disposition home or self-care (01) ==
LOC: BICMAMMO 08:27
PROVIDERS: ATTEND Family Medicine
DX: Z12.31 Encounter for screening mammogram for malignant neoplasm of breast (principal)
CPT/HCPCS: 77063; 77067

== ENCOUNTER 2019-04-21 12:45 | Day surgery (SDC) | payer OTHER ==
[2019-04-20 15:20] VITALS: BMI 23.3
[2019-04-21] MEDS ORDERED: Sodium Bicarbonate 2.5 MEQ/5 ML VIAL ONE (12:56)
--- NOTE | 2019-04-21 14:47 | ULT ---
US Thyroid Needle Bx HISTORY: Thyroid nodules noted on recent ultrasound biopsy of the larger left lobe nodule was recomme nded. This is located at the junction of the left lobe and isthmus. COMPARISON: 03/31/2019 ultrasound study. FINDINGS: The nodule in question measures 1.7 x 3 cm it is complex with prominent cystic components. After informed consent was obtained the patient was prepped and draped in normal sterile fashion. Local anesthesia obtained with 1% Xylocaine mixed with sodium bicarbonate. A total of 4 25-gauge fine -needle aspirations of the nodule were performed. Patient tolerated the procedure well there were no immediate complications IMPRESSION: Ultrasound directed fine needle aspiration of left lobe thyroid nodule
== END 2019-04-21 13:00 | disposition home or self-care (01) ==
LOC: ULT 12:45
PROVIDERS: ATTEND Family Medicine
PROC: 0G9G3ZX Drainage of Left Thyroid Gland Lobe, Percutaneous Approach, Diagnostic (ICD-10-PCS; principal; 2019-04-21)
PROC: BG44ZZZ Ultrasonography of Thyroid Gland (ICD-10-PCS; principal; 2019-04-21)
DX: E04.1 Nontoxic single thyroid nodule (principal); K60.2 Anal fissure, unspecified; K64.9 Unspecified hemorrhoids; Z88.6 Allergy status to analgesic agent; Z91.010 Allergy to peanuts; Z91.013 Allergy to seafood
CPT/HCPCS: 60100; 76942; 88173

== ENCOUNTER 2019-11-15 13:40 | Emergency (ER) | payer OTHER | END 2019-11-15 17:23 | disposition home or self-care (01) | LOC: ERS 13:40 | DX: T78.40XA Allergy, unspecified, initial encounter (principal); F41.9 Anxiety disorder, unspecified; J45.909 Unspecified asthma, uncomplicated; Z87.891 Personal history of nicotine dependence | CPT/HCPCS: 99283 ==

== ENCOUNTER 2020-04-19 09:55 | Outpatient (CLI) | payer OTHER ==
--- NOTE | 2020-04-19 10:42 | MMO ---
Bilateral MAMMO Bilat Screen [facility]. CLINICAL HISTORY: Patient is 45 years old and is seen for screening. The patient has no family history of breast cancer. The patient has no personal history of cancer. VIEWS: The views performed were: bilateral craniocaudal with tomosynthesis; bilateral mediolateral oblique with tomosynthesis; and bilateral exaggerated craniocaudal. FILMS COMPARED: The present examination has been compared to prior imaging studies performed at [facility] on 04/09/2018 and 04/14/2019. This study has been interpreted with the assistance of computer-aided detection. MAMMOGRAM FINDINGS: There are scattered fibroglandular densities. There are no suspicious masses, suspicious calcifications, or new areas of architectural distortion. IMPRESSION: THERE IS NO MAMMOGRAPHIC EVIDENCE OF MALIGNANCY. A ROUTINE FOLLOW-UP MAMMOGRAM IN 1 YEAR IS RECOMMENDED. THE RESULTS OF THIS EXAM WERE SENT TO THE PATIENT. ACR BI-RADS Category 1 - Negative MAMMOGRAPHY NOTE: 1. A negative mammogram report should not delay a biopsy if a dominant of clinically suspicious mass is present. 2. Approximately 10% to 15% of breast cancers are not detected by mammography. 3. Adenosis and dense breasts may obscure an underlying neoplasm. Reported by: JENNYFER ROSAS MD Electonically Signed: [id number]
== END 2020-04-19 09:56 | disposition home or self-care (01) ==
LOC: BICMAMMO 09:55
PROVIDERS: ATTEND Family Medicine
DX: Z12.31 Encounter for screening mammogram for malignant neoplasm of breast (principal)
CPT/HCPCS: 77063; 77067

== ENCOUNTER 2020-05-04 09:16 | Outpatient (CLI) | payer OTHER ==
--- NOTE | 2020-05-04 09:45 | ULT ---
THYROID ULTRASOUND: COMPARISON: 03/31/2019. HISTORY: Left thyroid nodule. FINDINGS: Thyroid isthmus measures 0.92 cm. Right thyroid lobe measures 2.4 x 2.3 x 6.4 cm. Left thyroid lobe measures 1.5 x 1.7 x 6.4 cm. Thyroid nodules: Right thyroid lobe: 0.8 x 1.0 x 0.9 mixed solid and cystic nodule in the upper pole. 0.6 x 0.7 x 1.0 cm solid nodule in the midpole. 2.6 x 2.1 x 1.5 cm mixed solid and cystic nodule in the mid to lower pole of the right thyroid lobe. Left thyroid lobe: 2.3 x 1.3 x 3.0 cm mixed solid and cystic nodule in the lower pole. IMPRESSION: Multiple thyroid nodules. TIRADS level TR4, moderately suspicious Ultrasound-guided fine-needle aspi ration of the dominant nodule in the lower pole of the left thyroid lobe and mixed solid cystic nodule lower pole in the right thyroid lobe is recommended. Transcribed Date/Time: 05/04/2020 10:23 AM
== END 2020-05-04 09:17 | disposition home or self-care (01) ==
LOC: BICULT 09:16
PROVIDERS: ATTEND Family Medicine
DX: E04.2 Nontoxic multinodular goiter (principal)
CPT/HCPCS: 76536

== ENCOUNTER 2020-06-15 08:28 | Outpatient (CLI) | payer OTHER ==
[2020-06-16 12:08] LABS: SARS-CoV-2 MS2 Positive; SARS-CoV-2 N Gene Negative; SARS-CoV-2 S Gene Negative; SARS-CoV-2 by NAA Not Detected (NotDetected); SARS-CoV-2 orf1ab Negative
== END 2020-06-15 08:29 | disposition home or self-care (01) ==
LOC: LABSCS 08:28
PROVIDERS: ATTEND Otolaryngology Plastic Surgery within the Head & Neck
DX: Z01.812 Encounter for preprocedural laboratory examination (principal); Z11.59 Encounter for screening for other viral diseases
CPT/HCPCS: 87635; U0003

== ENCOUNTER 2020-06-20 12:31 | Day surgery (SDC) | payer OTHER ==
[2020-06-20] MEDS ORDERED: Lidocaine 1% PF 5 ML VIAL ONE (13:02)
[2020-06-20] MEDS ORDERED: Sodium Bicarbonate 2.5 MEQ/5 ML VIAL ONE (13:02)
[2020-06-20 13:13] VITALS: BP 127/91; TEMP 98.4
--- NOTE | 2020-06-20 13:46 | ULT ---
PROCEDURE: US Thyroid Needle Bx PROVIDED CLINICAL HISTORY: Bilateral thyroid nodules with dominant cystic and solid nodules in each lobe of thyroid gland. Fine- needle aspiration of the larger nodules within each lobe of thyroid gland was recommended. COMPARISON: Prior thyroid ultrasound 03/31/2019 and prior ultrasound-guided fine needle aspiration of left thyroid nodule on 04/21/2019 TECHNIQUE: The procedure including the risks and complications were explained to the patient, and informed conse nt was obtained. Patient was placed on the sonography table in the supine position. Limited sonographic evaluation of the neck was formed. Previous fine-needle aspiration of the nodule in the i nferior pole left lobe of thyroid gland was performed on 04/21/2019 with benign biopsy results. As result, a needle aspiration of this nodule was not again performed. The dominant cystic and solid dominant nodule in midportion right lobe of the thyroid gland was local ized. The area was meticulously prepped and draped in usual sterile fashion. Skin and subcutaneous tissues were infiltrated with buffered 1% lidocaine for local anesthesia. Utilizing concurrent real-t kash ultrasound guidance, a total of 4 fine-needle aspiration specimens were obtained utilizing a 25-gauge needle. Hemostasis was achieved with direct pressure. Follow-up imaging post fine-needle asp iration demonstrates no fluid adjacent to the right lobe of thyroid gland or evidence of hematoma. Dry sterile dressing was placed at puncture site. Patient tolerated the procedure well and without im mediate complication. Patient was discharged in stable condition. Patient was provided an ice pack for placement on site of fine-needle aspiration. IMPRESSION: 1. Dominant cystic and solid nodule right lobe of the thyroid gland. 2. Technically successful ultrasound-guided fine-needle aspiration of dominant nodule right lobe of t he thyroid gland. Pathology is currently pending.
== END 2020-06-20 13:40 | disposition home or self-care (01) ==
LOC: ULT 12:31
PROVIDERS: ATTEND Otolaryngology Plastic Surgery within the Head & Neck
PROC: 0GBH3ZX Excision of Right Thyroid Gland Lobe, Percutaneous Approach, Diagnostic (ICD-10-PCS; principal; 2020-06-20)
PROC: BG44ZZZ Ultrasonography of Thyroid Gland (ICD-10-PCS; principal; 2020-06-20)
DX: E04.1 Nontoxic single thyroid nodule (principal); J30.9 Allergic rhinitis, unspecified; J34.3 Hypertrophy of nasal turbinates; Z79.899 Other long term (current) drug therapy; Z88.5 Allergy status to narcotic agent; Z91.010 Allergy to peanuts; Z91.013 Allergy to seafood
CPT/HCPCS: 60100; 76942; 88173

== ENCOUNTER 2021-04-24 10:40 | Outpatient (CLI) | payer OTHER | END 2021-04-24 10:41 | disposition home or self-care (01) | LOC: BICMAMMO 10:40 | PROVIDERS: ATTEND Family Medicine | DX: Z12.31 Encounter for screening mammogram for malignant neoplasm of breast (principal); Z80.3 Family history of malignant neoplasm of breast | CPT/HCPCS: 77067 ==